=== PATIENT | male | born 1980 | race African-American/Black ===

== ENCOUNTER 2018-05-01 21:48 | Inpatient (IN) | payer OTHER ==
[~2018-05-01] VITALS: Ht 195.6 cm; Wt 90.7 kg
[2018-05-01] MEDS ORDERED: SODIUM CHLORIDE 0.9% 1,000 ML IV ONE (23:43)
[2018-05-01] MEDS ORDERED: FAMOTIDINE 20MG/2ML VIAL IV STA (23:43)
[2018-05-01] MEDS ORDERED: ONDANSETRON HCL 4MG/2ML INJ IV STA (23:43)
[2018-05-01] MEDS ORDERED: MORPHINE SULFATE 10 MG/ML CPJ IV ONE (23:45)
[2018-05-02] MEDS ORDERED: KETOROLAC 15MG/ML VIAL IV ONE (00:15)
[2018-05-02] MEDS ORDERED: DIATR MEGLU/DIATRIZOATE SOLN 30ML ONE (01:10)
[2018-05-02 01:15] LABS: BASOPHILS % 0.8 % (0.0-2.0); EOSINOPHILS % 0.9 % (0.0-5.0); HEMATOCRIT. 41.6 % (42.0-52.0); HEMOGLOBIN. 14.3 g/dL (14.0-18.0); LYMPHOCYTES % 30.8 % (20.0-50.0); MEAN CORPUSCULAR HEMOGLOBIN 30.5 pg (28.0-32.0); MEAN CORPUSCULAR VOLUME 88.6 fL (80.0-94.0); MEAN PLATELET VOLUME 7.3 fl (7.4-10.4); MONOCYTES % 6.7 % (2.0-8.0); NEUTROPHILS % 60.8 % (40.0-76.0); PLATELET 319 x1000/uL (130-400); RED CELL DISTRIBUTION WIDTH 12.6 % (11.6-14.6)
[2018-05-02 01:22] LABS: INR 1.1; PROTHROMBIN TIME 10.7 sec (9.1-11.1)
[2018-05-02 01:27] LABS: CHLORIDE 103 mEq/L (98-107)
[2018-05-02] MEDS ORDERED: MORPHINE SULFATE 10 MG/ML CPJ IV ONE (03:15)
[2018-05-02] MEDS ORDERED: IOHEXOL-300 100 ML BOTTLE ONE (05:54)
[2018-05-02] MEDS ORDERED: DOCUSATE SODIUM 100MG CAPSULE PO PRN (07:00)
[2018-05-02] MEDS ORDERED: ACETAMINOPHEN 325MG TABLET PO PRN (07:00)
[2018-05-02] MEDS ORDERED: ONDANSETRON HCL 4MG/2ML INJ IV PRN (07:00)
[2018-05-02] MEDS ORDERED: LORAZEPAM 2MG/ML CPJ IV PRN (07:00)
[2018-05-02] MEDS ORDERED: DIPHENHYDRAMINE 50MG/ML VIAL IV PRN (07:00)
[2018-05-02] MEDS ORDERED: IPRATROPIUM/ALBUTEROL 0.5-3(2.5)MG/3ML NEB INH PRN (07:00)
[2018-05-02] MEDS ORDERED: CLONIDINE 0.1MG TABLET PO PRN (07:00)
[2018-05-02] MEDS ORDERED: GUAIFENESIN 200MG/10ML SUGAR FREE UDC PO PRN (07:00)
[2018-05-02] MEDS ORDERED: MAGNESIUM/ALUMINUM HYDROXIDE/SIMETHICONE 30ML UDC PO PRN (07:00)
[2018-05-02] MEDS ORDERED: HYDROCODONE/ACETAMINOPHEN 10/325MG TABLET PO PRN (07:00)
[2018-05-02 07:10] LABS: CLARITY URINE CLEAR (CLEAR); COLOR URINE YELLOW (YELLOW); KETONES URINE NEGATIVE (NEGATIVE); LEUKOCYTE ESTERASE URINE NEGATIVE (NEGATIVE); NITRITE URINE NEGATIVE (NEGATIVE); OCCULT BLOOD URINE NEGATIVE (NEGATIVE); PH URINE 5.5 (4.5-8.0); PROTEIN URINE NEGATIVE (NEGATIVE); SPECIFIC GRAVITY URINE 1.048 (1.005-1.030); UROBILINOGEN URINE 0.2 E.U./dL (0.2-1.0)
[2018-05-02 10:50] VITALS: BP 127/87
[2018-05-02] MEDS: DEXT 5%/0.45% NACL 1000ML 1,000 ML IV SCH (12:47)
[2018-05-02] MEDS: HYDROMORPHONE HCL/PF 2MG/ML CPJ IV PRN ×2 (13:43→20:55)
[2018-05-02] MEDS: SODIUM CHLORIDE 0.9% INJ 3ML FLUSH IVF SCH ×2 (14:00→22:36)
[2018-05-02 16:54] VITALS: BP 129/86
[2018-05-02 18:32] LABS: CREATINE KINASE 119 IU/L (39-308)
[2018-05-02 18:33] LABS: CREATINE KINASE MB FRACTION < 1.0 ng/mL (0.5-3.6)
[2018-05-02 20:00] VITALS: BP 121/76
[2018-05-03] VITALS: BP 136/89
[2018-05-03] MEDS: DEXT 5%/0.45% NACL 1000ML 1,000 ML IV SCH ×2 (01:58→17:12)
[2018-05-03 02:35] LABS: CREATINE KINASE 97 IU/L (39-308)
[2018-05-03 02:36] LABS: CREATINE KINASE MB FRACTION < 1.0 ng/mL (0.5-3.6)
[2018-05-03 04:00] VITALS: BP 131/89
[2018-05-03] MEDS: SODIUM CHLORIDE 0.9% INJ 3ML FLUSH IVF SCH ×2 (06:06→17:12)
[2018-05-03 08:00] VITALS: BP 120/69
[2018-05-03 08:55] LABS: BASOPHILS % 0.9 % (0.0-2.0); EOSINOPHILS % 2.2 % (0.0-5.0); HEMATOCRIT. 40.4 % (42.0-52.0); HEMOGLOBIN. 13.9 g/dL (14.0-18.0); LYMPHOCYTES % 31.5 % (20.0-50.0); MEAN CORPUSCULAR HEMOGLOBIN 30.6 pg (28.0-32.0); MEAN PLATELET VOLUME 7.1 fl (7.4-10.4); MONOCYTES % 6.3 % (2.0-8.0); NEUTROPHILS % 59.1 % (40.0-76.0); PLATELET 291 x1000/uL (130-400); RED BLOOD CELL COUNT 4.54 mill/uL (4.7-6.1); RED CELL DISTRIBUTION WIDTH 12.6 % (11.6-14.6)
[2018-05-03 09:03] LABS: CHLORIDE 103 mEq/L (98-107)
[2018-05-03 09:12] LABS: T4 FREE 1.29 ng/dL (0.76-1.46)
[2018-05-03] MEDS: HYDROMORPHONE HCL/PF 2MG/ML CPJ IV PRN ×3 (09:27→20:33)
[2018-05-03] MEDS: PANTOPRAZOLE SODIUM 40 MG/VIAL IV SCH ×2 (09:27→20:33)
[2018-05-03 12:00] VITALS: BP 138/88
[2018-05-03 16:00] VITALS: BP 109/64
[2018-05-03 20:00] VITALS: BP 126/79
[2018-05-04] VITALS: BP 118/72
[2018-05-04] MEDS: HYDROMORPHONE HCL/PF 2MG/ML CPJ IV PRN ×5 (00:27→23:42)
[2018-05-04] MEDS: DEXT 5%/0.45% NACL 1000ML 1,000 ML IV SCH ×2 (03:59→19:47)
[2018-05-04 04:00] VITALS: BP 103/60
[2018-05-04 08:00] VITALS: BP 115/73
[2018-05-04] MEDS: PANTOPRAZOLE SODIUM 40 MG/VIAL IV SCH ×2 (08:50→20:36)
[2018-05-04 12:00] VITALS: BP 115/62
[2018-05-04] MEDS ORDERED: MIDAZOLAM HCL 2 MG/2 ML VIAL IV PRN ×2 (12:46→13:45)
[2018-05-04] MEDS ORDERED: FENTANYL CITRATE/PF 50MCG/ML 2ML VIAL IV PRN ×2 (12:48→13:45)
[2018-05-04] MEDS ORDERED: FENTANYL CITRATE/PF 50MCG/ML 2ML VIAL ONE (13:27)
[2018-05-04] MEDS ORDERED: MIDAZOLAM HCL 5 MG/5 ML VIAL ONE (13:27)
[2018-05-04] MEDS ORDERED: OMEPRAZOLE 20MG CAPSULE EXTENDED RELEASE PO SCH (14:00)
[2018-05-04] MEDS ORDERED: SODIUM CHLORIDE 0.9% 10ML VIAL ONE (14:18)
[2018-05-04 16:00] VITALS: BP 147/77
[2018-05-04 20:00] VITALS: BP 112/70
[2018-05-05] VITALS: BP 122/67
[2018-05-05] MEDS: HYDROMORPHONE HCL/PF 2MG/ML CPJ IV PRN ×2 (03:55→09:22)
[2018-05-05 04:00] VITALS: BP 123/69
[2018-05-05] MEDS ORDERED: OMEPRAZOLE 20MG CAPSULE EXTENDED RELEASE PO SCH (06:45)
[2018-05-05 08:24] VITALS: BP 117/82
[2018-05-05] MEDS: PANTOPRAZOLE SODIUM 40 MG/VIAL IV SCH (09:21)
[2018-05-05 11:37] VITALS: BP 116/73
[2018-05-05 12:00] VITALS: BP 116/73
== END 2018-05-05 13:30 | disposition home or self-care (01) | DRG 391 ==
LOC: ER 21:48 → 6WST 05-02 02:52 → EDBEDREQ 05-02 02:55 → ENRESERV 05-02 09:58 → 5WST 05-03 06:41
PROVIDERS: ADMIT Internal Medicine; ATTEND Internal Medicine
PROC: 0DB68ZX Excision of Stomach, Via Natural or Artificial Opening Endoscopic, Diagnostic (ICD-10-PCS; 2018-05-04)
PROC: 0DB38ZX Excision of Lower Esophagus, Via Natural or Artificial Opening Endoscopic, Diagnostic (ICD-10-PCS; principal; 2018-05-04 13:00)
DX: K21.0 Gastro-esophageal reflux disease with esophagitis (principal); K22.11 Ulcer of esophagus with bleeding; K92.0 Hematemesis; K44.9 Diaphragmatic hernia without obstruction or gangrene; Z98.84 Bariatric surgery status
CPT/HCPCS: 36415; 74177; 82550; 82553; 83605; 84439; 84443; 84484; 88305; 88312; 88313; 96361; 96374; 96375; 99152; 99291; A4216; C9113; J1170; J1885; J2250; J2270; J2405; J3010; J3490; J7030; Q9963; Q9967; G0500